=== PATIENT | male | born 1985 | race Caucasian/White ===

== ENCOUNTER → 2016-11-12 | Outpatient (CLI) | payer MEDICARE, BC | END | disposition home or self-care (01) | LOC: LABWHC1 10:45 | PROVIDERS: ATTEND Internal Medicine Cardiovascular Disease | DX: I42.8 Other cardiomyopathies (principal); I50.9 Heart failure, unspecified | CPT/HCPCS: 80307; G0480 ×2; 80349; 80353 ==

== ENCOUNTER → 2017-01-16 | Outpatient (CLI) | payer MEDICARE, BC ==
[2017-01-16 10:44] LABS: Basophils % (A) 0 %; CH 34.8; CHCM 35.4; Eosinophils % (A) 1 %; HCT 51.1 % (39.0-53.0); HDW 3.23; HGB 17.4 gm/dL (13.0-17.5); Luc # (Auto) 0.13; Luc % (Auto) 3; Lymphocytes # (A) 1.5 k/uL (1.0-4.8); Lymphocytes % (A) 29 %; MCH 33.6 pg (25.0-35.0); MCV 98.7 fL (80.0-100.0); Mean Platelet Volume 7.4; Monocytes # (A) 0.4 k/uL (0-1.0); Monocytes % (A) 8 %; Neutrophils % (A) 60 %; RBC 5.17 m/uL (4.30-5.90); RDW 14.3 % (11.5-15.5); WBC (Perox) 4.93
[2017-01-16 10:47] LABS: Anion Gap 13 mmol/L; Blood Urea Nitrogen 10 mg/dL (9-20); Calcium 9.8 mg/dL (8.4-10.2); Carbon Dioxide 27 mmol/L (22-30); Chloride 103 mmol/L (98-107); Glucose 93 mg/dL (74-99); LDH 934 U/L (313-618); Magnesium 2.1 mg/dL (1.6-2.3); Non-African American GFR(MDRD) >60 (>60 ml/min/1.73 sqM); Potassium 4.4 mmol/L (3.5-5.1); Sodium 143 mmol/L (137-145)
== END | disposition home or self-care (01) ==
LOC: LABWHC1 09:35
PROVIDERS: ATTEND Surgery
DX: I42.5 Other restrictive cardiomyopathy (principal); I50.9 Heart failure, unspecified
CPT/HCPCS: 36415; 80048; 83615; 83735; 83880; 85025

== ENCOUNTER → 2017-06-23 | Outpatient (CLI) | payer MEDICARE, BC | END | disposition home or self-care (01) | LOC: LABWHC1 11:54 | PROVIDERS: ATTEND Internal Medicine Cardiovascular Disease | DX: I42.8 Other cardiomyopathies (principal); I50.9 Heart failure, unspecified | CPT/HCPCS: G0480 ×3; 80323; 80349; 80353 ==

== ENCOUNTER → 2017-08-04 | Outpatient (CLI) | payer MEDICARE, BC ==
[2017-08-06 16:12] LABS: Anabasine Urine <2.0 ng/mL (<2.0)
== END | disposition home or self-care (01) ==
LOC: LABWHC1 12:29
PROVIDERS: ATTEND Internal Medicine Cardiovascular Disease
DX: Z71.51 Drug abuse counseling and surveillance of drug abuser (principal)
CPT/HCPCS: 36415; G0480 ×3; 80323; 80349; 80353

== ENCOUNTER → 2017-09-10 | Outpatient (CLI) | payer MEDICARE, BC | END | disposition home or self-care (01) | LOC: LABWHC1 10:00 | PROVIDERS: ATTEND Internal Medicine Cardiovascular Disease | DX: I42.8 Other cardiomyopathies (principal); Z53.9 Procedure and treatment not carried out, unspecified reason ==

== ENCOUNTER → 2018-02-16 | Outpatient (CLI) | payer MEDICARE, BC ==
[2018-02-16 10:37] LABS: INR 1.9 (<1.2); Prothrombin Time 17.3 sec (9.0-12.0)
== END | disposition home or self-care (01) ==
LOC: LABWHC1 08:52
PROVIDERS: ATTEND Surgery
DX: I42.5 Other restrictive cardiomyopathy (principal); I50.9 Heart failure, unspecified
CPT/HCPCS: 36415; 83615; 85610

== ENCOUNTER 2018-05-01 18:48 | Emergency (ER) | payer MEDICARE, BC ==
[2018-05-01 18:59] VITALS: TEMP 97.6
[2018-05-01] MEDS ORDERED: OXYMETAZOLINE 0.05% NASL SPRAY 1 SPRAY BOTTLE NASAL STA (19:12)
[2018-05-01 20:02] LABS: INR 1.6 (<1.2); Partial Thromboplastin Time 35.5 sec (22.0-30.0); Prothrombin Time 16.2 sec (9.0-12.0)
--- NOTE | 2018-05-01 20:44 | ED ---
ENT HPI - General Chief complaint: ENT Stated complaint: NOSEBLEED Time Seen by Provider: 05/01/18 19:03 Source: patient Mode of arrival: ambulatory Limitations: no limitations - History of Present Illness Initial comments: 32-year-old male patient with past medical history significant for dilated cardiomyopathy with implanted cardioverter defibrillator and use of Coumadin presents to the emergency department today for evaluation of epistaxis. Patient states a couple of hours ago he started to have some bleeding from the right nostril. Patient states his been unable to get it to stop. He denies any headache, blurred vision, double vision, facial pain, dizziness, or weakness. States that he has been sick with upper respiratory symptoms including nasal congestion and drainage as well as cough. He denies any current fever or chills. Denies any shortness of breath or hemoptysis. He is unsure when his last INR was checked. Patient denies any recent rash, chest pain , abdominal pain, nausea, vomiting, diarrhea, constipation, back pain, numbness , tingling, hematuria, dysuria, urinary urgency, urinary frequency, or any other complaints. - Related Data Allergies Allergy/AdvReac Type Severity Reaction Status Date / Time No Known Allergies Allergy Verified 05/01/18 18:58 Review of Systems ROS Statement: Those systems with pertinent positive or pertinent negative responses have been documented in the HPI. ROS Other: All systems not noted in ROS Statement are negative. Past Medical History Past Medical History: Hypertension Additional Past Medical History / Comment(s): Lt ventricle assistive device. History of Any Multi-Drug Resistant Organisms: None Reported Past Surgical History: AICD, Pacemaker Past Psychological History: No Psychological Hx Reported Smoking Status: Never smoker Past Alcohol Use History: None Reported Past Drug Use History: None Reported General Exam Limitations: no limitations General appearance: alert, in no apparent distress, other (Physical well- developed, well-nourished adult male patient in no acute distress. Vital signs upon presentation are temperature 97.6F, pulse 140, respirations 20, pulse ox 100% on room air. Unable to obtain blood pressure due to heart condition.) ENT exam: Present: mucous membranes moist, other (Dried crusted blood noted to right nare. No active bleeding noted. ). Absent: normal exam, normal oropharynx (Blood noted in the pharynx.) Respiratory exam: Present: normal lung sounds bilaterally. Absent: respiratory distress, wheezes, rales, rhonchi, stridor Cardiovascular Exam: Present: normal rhythm, tachycardia, normal heart sounds. Absent: systolic murmur, diastolic murmur, rubs, gallop, clicks Neurological exam: Present: alert, oriented X3, CN II-XII intact Psychiatric exam: Present: normal affect, normal mood Skin exam: Present: warm, dry, intact, normal color. Absent: rash Course Vital Signs 05/01/18 05/01/18 18:55 21:03 Temperature 97.6 F Pulse Rate 140 H 108 H Respiratory 20 18 Rate O2 Sat by Pulse 100 98 Oximetry Medical Decision Making - Medical Decision Making 32-year-old male patient presented to the emergency department today for evaluation of epistaxis. Patient does take Coumadin. INR here was 1.6. Did use Afrin and compression which did stop the bleeding. Monitor patient for a period of 40 minutes, he had no rebleeding and did request to be discharged home. Patient does have an LVAD and did speak to his LVAD coordinator who agrees with plan for discharge and use of Afrin as needed. Heart rate did improve. Patient states he normally runs around 100 bpm. He is instructed to follow-up with his primary care physician for recheck in 1-2 days. Return parameters discussed in detail. He verbalizes understanding and agrees this plan - Lab Data Lab Results 05/01/18 Range/Units 19:25 PT 16.2 H (9.0-12.0) sec INR 1.6 H (<1.2) APTT 35.5 H (22.0-30.0) sec Disposition Clinical Impression: Epistaxis Disposition: HOME SELF-CARE Condition: Good Instructions: Nosebleed (ED) Additional Instructions: Use afrin as needed and as directed for recurrent nasal bleeding. Follow up with family physician for recheck in 1-2 days. Return to the emergency department immediately for any new, worsening, or concerning symptoms. Is patient prescribed a controlled substance at d/c from ED?: No Referrals: None,Stated [Primary Care Provider] - 1-2 days Time of Disposition: 20:44
[2018-05-01 21:04] VITALS: PULSE 108; RESP 18
== END 2018-05-01 21:04 | disposition home or self-care (01) ==
LOC: EC 18:48
DX: R04.0 Epistaxis (principal); Z79.01 Long term (current) use of anticoagulants; Z86.79 Personal history of other diseases of the circulatory system; Z95.810 Presence of automatic (implantable) cardiac defibrillator
CPT/HCPCS: 36415; 85610; 85730; 99283

== ENCOUNTER → 2019-05-08 | Outpatient (CLI) | payer MEDICARE, BC ==
[2019-05-08 11:28] LABS: Basophils # (A) 0.1 k/uL (0-0.2); Basophils % (A) 1 %; Eosinophils % (A) 1 %; HCT 42.1 % (39.0-53.0); HGB 15.1 gm/dL (13.0-17.5); Hyperchromasia Slight; Lymphocytes # (A) 1.2 k/uL (1.0-4.8); Lymphocytes % (A) 23 %; MCH 32.3 pg (25.0-35.0); MCHC 35.8 g/dL (31.0-37.0); MCV 90.3 fL (80.0-100.0); Mean Platelet Volume 8.2; Monocytes # (A) 0.3 k/uL (0-1.0); Monocytes % (A) 6 %; Neutrophils # (A) 3.6 k/uL (1.3-7.7); Neutrophils % (A) 68 %; Platelet Count 208 k/uL (150-450); RBC 4.66 m/uL (4.30-5.90); RDW 13.6 % (11.5-15.5); WBC 5.3 k/uL (3.8-10.6)
[2019-05-08 11:41] LABS: ALT 19 U/L (4-49); AST 32 U/L (17-59); African American GFR (CKD) >90 (>60 ml/min/1.73 sqM); Albumin 4.8 g/dL (3.5-5.0); Albumin/Globulin Ratio 1.4; Alkaline Phosphatase 35 U/L (38-126); Anion Gap 8 mmol/L; Bilirubin,Unconjugated 1.3 mg/dL (0.0-1.1); Blood Urea Nitrogen 16 mg/dL (9-20); Calcium 9.5 mg/dL (8.4-10.2); Carbon Dioxide 29 mmol/L (22-30); Chloride 104 mmol/L (98-107); Globulin 3.4 g/dL; Glucose 100 mg/dL (74-99); LDH 996 U/L (313-618); Non-African American GFR(CKD) >90 (>60 ml/min/1.73 sqM); Potassium 4.6 mmol/L (3.5-5.1); Sodium 141 mmol/L (137-145); Total Bilirubin 1.6 mg/dL (0.2-1.3); Total Protein 8.2 g/dL (6.3-8.2)
[2019-05-08 11:42] LABS: INR 1.7 (<1.2); Prothrombin Time 16.3 sec (9.0-12.0)
== END | disposition home or self-care (01) ==
LOC: LABWHC1 11:02
PROVIDERS: ATTEND Surgery
DX: I50.9 Heart failure, unspecified (principal); I42.5 Other restrictive cardiomyopathy
CPT/HCPCS: 36415; 80048; 80076; 83615; 83735; 83880; 85025; 85610

== ENCOUNTER → 2019-05-15 | Outpatient (CLI) | payer MEDICARE, BC ==
[2019-05-15 12:35] LABS: Partial Thromboplastin Time 32.3 sec (22.0-30.0); Prothrombin Time 19.2 sec (9.0-12.0)
== END | disposition home or self-care (01) ==
LOC: LABWHC1 12:00
PROVIDERS: ATTEND Surgery
DX: I42.5 Other restrictive cardiomyopathy (principal); I50.9 Heart failure, unspecified
CPT/HCPCS: 36415; 83615; 85610; 85730

== ENCOUNTER → 2019-10-12 | Outpatient (CLI) | payer MEDICARE, BC ==
[2019-10-12 17:12] LABS: Urine Alcohol Negative (Negative); Urine Barbiturate Negative (Negative); Urine Cocaine Negative (Negative); Urine Methadone Negative (Negative); Urine Opiates Negative (Negative); Urine Phencyclidine Negative (Negative)
== END | disposition home or self-care (01) ==
LOC: LABWHC1 07:22
PROVIDERS: ATTEND Internal Medicine Cardiovascular Disease
DX: Z01.810 Encounter for preprocedural cardiovascular examination (principal)
CPT/HCPCS: 80306; 80307

== ENCOUNTER → 2019-11-30 | Outpatient (CLI) | payer MEDICARE, BC | END | disposition home or self-care (01) | LOC: LABWHC1 07:02 | PROVIDERS: ATTEND Internal Medicine Cardiovascular Disease | DX: Z01.810 Encounter for preprocedural cardiovascular examination (principal) | CPT/HCPCS: 80307; G0480 ×2; 80349; 80353 ==

== ENCOUNTER → 2020-02-21 | Outpatient (CLI) | payer MEDICARE, BC ==
[2020-02-21 08:16] LABS: Basophils # (A) 0.1 k/uL (0-0.2); Basophils % (A) 1 %; Eosinophils # (A) 0.1 k/uL (0-0.7); Eosinophils % (A) 1 %; HCT 50.1 % (39.0-53.0); HGB 17.1 gm/dL (13.0-17.5); Lymphocytes # (A) 1.3 k/uL (1.0-4.8); Lymphocytes % (A) 24 %; MCH 32.8 pg (25.0-35.0); MCHC 34.2 g/dL (31.0-37.0); MCV 95.8 fL (80.0-100.0); Mean Platelet Volume 7.6; Monocytes # (A) 0.4 k/uL (0-1.0); Monocytes % (A) 9 %; Neutrophils # (A) 3.3 k/uL (1.3-7.7); Neutrophils % (A) 64 %; Platelet Count 208 k/uL (150-450); RBC 5.22 m/uL (4.30-5.90); RDW 13.6 % (11.5-15.5); WBC 5.2 k/uL (3.8-10.6)
[2020-02-21 14:42] LABS: Digoxin 0.3 ng/mL (0.8-2.0)
[2020-02-21 15:04] LABS: African American GFR (CKD) 114.1 (60.0-200.0); Albumin 4.7 g/dL (3.80-4.90); Albumin/Globulin Ratio 1.74 (1.60-3.17); Anion Gap 8.4 mmol/L (4.00-12.00); Bilirubin, Conjugated 0.6 mg/dL (0.20-0.40); Bilirubin,Unconjugated 1.5 mg/dL; Calcium 9.6 mg/dL (8.7-10.3); Carbon Dioxide 26.6 mmol/L (21.6-31.8); Globulin 2.7 g/dL (1.6-3.3); Magnesium 2.2 mg/dL (1.5-2.4); Non-African American GFR(CKD) 98.5 (60.0-200.0); Potassium 4.8 mmol/L (3.5-5.5); Total Bilirubin 2.1 mg/dL (0.2-1.2); Total Protein 7.4 g/dL (6.2-8.2)
[2020-02-21 15:18] LABS: INR 1.91 (0.90-1.11); Prothrombin Time 19.9 sec (9.9-11.9)
== END | disposition home or self-care (01) ==
LOC: LABWHC1 07:17 → EDSTATUS 08:58
PROVIDERS: ATTEND Physician Assistant
DX: I50.9 Heart failure, unspecified (principal); I42.5 Other restrictive cardiomyopathy
CPT/HCPCS: 36415; 80048; 80076; 80162; 83615; 83735; 83880; 85025; 85610

== ENCOUNTER → 2020-03-14 | Outpatient (CLI) | payer MEDICARE, BC ==
[2020-03-14 08:25] LABS: Basophils % (A) 1 %; Eosinophils % (A) 1 %; HGB 17.4 gm/dL (13.0-17.5); Hyperchromasia Slight; Lymphocytes # (A) 1.4 k/uL (1.0-4.8); Lymphocytes % (A) 30 %; MCH 32.8 pg (25.0-35.0); MCHC 35.5 g/dL (31.0-37.0); MCV 92.5 fL (80.0-100.0); Mean Platelet Volume 7.7; Monocytes # (A) 0.4 k/uL (0-1.0); Monocytes % (A) 7 %; Neutrophils # (A) 2.8 k/uL (1.3-7.7); Neutrophils % (A) 59 %; Platelet Count 214 k/uL (150-450); RDW 13.2 % (11.5-15.5); WBC 4.8 k/uL (3.8-10.6)
[2020-03-14 08:35] LABS: ALT 25 U/L (4-49); AST 34 U/L (17-59); African American GFR (CKD) >90 (>60 ml/min/1.73 sqM); Albumin 5.2 g/dL (3.5-5.0); Albumin/Globulin Ratio 1.6; Alkaline Phosphatase 30 U/L (38-126); Anion Gap 8 mmol/L; Blood Urea Nitrogen 11 mg/dL (9-20); Calcium 9.7 mg/dL (8.4-10.2); Carbon Dioxide 31 mmol/L (22-30); Chloride 101 mmol/L (98-107); Globulin 3.2 g/dL; Glucose 102 mg/dL (74-99); LDH 1048 U/L (313-618); Magnesium 2.2 mg/dL (1.6-2.3); Non-African American GFR(CKD) >90 (>60 ml/min/1.73 sqM); Sodium 140 mmol/L (137-145); Total Bilirubin 2.4 mg/dL (0.2-1.3); Total Protein 8.4 g/dL (6.3-8.2)
[2020-03-14 08:42] LABS: INR 1.9 (<1.2); Prothrombin Time 18.6 sec (9.0-12.0)
[2020-03-14 10:11] LABS: Digoxin <0.4 ng/mL
== END | disposition home or self-care (01) ==
LOC: LABWHC1 07:20 → EDSTATUS 07:23
PROVIDERS: ATTEND Physician Assistant
DX: Z01.810 Encounter for preprocedural cardiovascular examination (principal); I50.9 Heart failure, unspecified; I42.5 Other restrictive cardiomyopathy
CPT/HCPCS: 36415; 80048; 80076; 80162; 80307; 83615; 83735; 83880; 85025; 85610

== ENCOUNTER → 2020-05-30 | Outpatient (CLI) | payer MEDICARE, BC ==
[2020-05-31 15:17] LABS: Anabasine Urine <2.0 ng/mL (<2.0)
== END | disposition home or self-care (01) ==
LOC: LABWHC1 13:30
PROVIDERS: ATTEND Internal Medicine
DX: Z01.810 Encounter for preprocedural cardiovascular examination (principal)
CPT/HCPCS: 80307; 80323

== ENCOUNTER → 2020-07-03 | Outpatient (CLI) | payer MEDICARE, BC ==
[2020-07-03 22:39] LABS: INR 2.38 (0.90-1.11); Prothrombin Time 24.5 sec (9.9-11.9)
[2020-07-03 23:12] LABS: Basophils # (A) 0.03 X 10*3/uL (0.00-0.10); Basophils % (A) 0.5 %; Eosinophils # (A) 0.04 X 10*3/uL (0.04-0.35); Eosinophils % (A) 0.7 %; HCT 43.8 % (39.6-50.0); HGB 15.6 g/dL (13.0-17.0); Lymphocytes # (A) 1.62 X 10*3/uL (0.90-5.00); Lymphocytes % (A) 29.1 %; MCH 32.3 pg (27.0-32.0); MCHC 35.6 g/dL (32.0-37.0); MCV 90.7 fL (80.0-97.0); Mean Platelet Volume 11.1 fL (9.5-12.2); Monocytes # (A) 0.44 X 10*3/uL (0.20-1.00); Monocytes % (A) 7.9 %; Neutrophils # (A) 3.41 X 10*3/uL (1.80-7.70); Neutrophils % (A) 61.3 %; Platelet Count 203 X 10*3/uL (140-440); RBC 4.83 X 10*6/uL (4.40-5.60); RDW 13.3 % (11.5-14.5); WBC 5.57 X 10*3/uL (4.50-10.00)
[2020-07-04 01:36] LABS: African American GFR (CKD) 113.3 (60.0-200.0); Albumin 4.8 g/dL (3.80-4.90); Anion Gap 11.4 mmol/L (4.00-12.00); Bilirubin, Conjugated 0.6 mg/dL (0.20-0.40); Bilirubin,Unconjugated 1.1 mg/dL; Calcium 9.3 mg/dL (8.7-10.3); Carbon Dioxide 24.6 mmol/L (21.6-31.8); Globulin 2.4 g/dL (1.6-3.3); Magnesium 2.1 mg/dL (1.5-2.4); Non-African American GFR(CKD) 97.8 (60.0-200.0); Potassium 4.1 mmol/L (3.5-5.5); Total Bilirubin 1.7 mg/dL (0.2-1.2); Total Protein 7.2 g/dL (6.2-8.2)
== END | disposition home or self-care (01) ==
LOC: LABWHC1 14:38
PROVIDERS: ATTEND Physician Assistant
DX: I42.5 Other restrictive cardiomyopathy (principal); I50.9 Heart failure, unspecified
CPT/HCPCS: 36415; 80048; 80076; 83615; 83735; 83880; 85025; 85610

== ENCOUNTER → 2020-07-05 | Outpatient (CLI) | payer MEDICARE, BC ==
[2020-07-10 08:44] LABS: Anabasine Urine <2.0 ng/mL (<2.0)
== END | disposition home or self-care (01) ==
LOC: LABWHC1 13:48
PROVIDERS: ATTEND Internal Medicine Cardiovascular Disease
DX: Z01.810 Encounter for preprocedural cardiovascular examination (principal)
CPT/HCPCS: 80307; G0480 ×2; 80323; 80349

== ENCOUNTER → 2020-11-15 | Outpatient (CLI) | payer MEDICARE, BC | END | disposition home or self-care (01) | LOC: LABWHC1 14:43 | PROVIDERS: ATTEND Internal Medicine Cardiovascular Disease | DX: Z01.810 Encounter for preprocedural cardiovascular examination (principal) | CPT/HCPCS: 36415; 80307 ==

== ENCOUNTER → 2020-11-27 | Outpatient (CLI) | payer MEDICARE, BC ==
[2020-11-27 19:28] LABS: INR 2.37 (0.90-1.11); Prothrombin Time 24.4 sec (9.9-11.9)
[2020-11-27 19:48] LABS: Basophils # (A) 0.03 X 10*3/uL (0.00-0.10); Basophils % (A) 0.5 %; Eosinophils # (A) 0.04 X 10*3/uL (0.04-0.35); Eosinophils % (A) 0.7 %; HCT 43.3 % (39.6-50.0); HGB 15.1 g/dL (13.0-17.0); Lymphocytes # (A) 1.29 X 10*3/uL (0.90-5.00); Lymphocytes % (A) 22.4 %; MCH 32.8 pg (27.0-32.0); MCHC 34.9 g/dL (32.0-37.0); MCV 93.9 fL (80.0-97.0); Mean Platelet Volume 11.2 fL (9.5-12.2); Monocytes # (A) 0.45 X 10*3/uL (0.20-1.00); Monocytes % (A) 7.8 %; Neutrophils # (A) 3.93 X 10*3/uL (1.80-7.70); Neutrophils % (A) 68.3 %; Platelet Count 202 X 10*3/uL (140-440); RBC 4.61 X 10*6/uL (4.40-5.60); RDW 13.4 % (11.5-14.5); WBC 5.76 X 10*3/uL (4.50-10.00)
[2020-11-28 02:10] LABS: African American GFR (CKD) 135.1 (60.0-200.0); Albumin 4.6 g/dL (3.80-4.90); Albumin/Globulin Ratio 1.77 (1.60-3.17); Anion Gap 8.5 mmol/L (4.00-12.00); BUN/Creat Ratio 17.5 Ratio (12.00-20.00); Bilirubin, Conjugated 0.5 mg/dL (0.20-0.40); Bilirubin,Unconjugated 1.1 mg/dL; Carbon Dioxide 27.5 mmol/L (21.6-31.8); Globulin 2.6 g/dL (1.6-3.3); Non-African American GFR(CKD) 116.6 (60.0-200.0); Potassium 4.6 mmol/L (3.5-5.5); Total Bilirubin 1.6 mg/dL (0.2-1.2); Total Protein 7.2 g/dL (6.2-8.2)
[2020-11-28 16:07] LABS: Digoxin 0.4 ng/mL (0.8-2.0)
== END | disposition home or self-care (01) ==
LOC: LABWHC1 14:01
PROVIDERS: ATTEND Physician Assistant
DX: I42.5 Other restrictive cardiomyopathy (principal); I50.9 Heart failure, unspecified
CPT/HCPCS: 36415; 80048; 80076; 80162; 83615; 83735; 83880; 85025; 85610

== ENCOUNTER → 2021-05-03 | Outpatient (CLI) | payer MEDICARE, BC | END | disposition home or self-care (01) | LOC: LABWHC1 13:36 | PROVIDERS: ATTEND Internal Medicine Cardiovascular Disease | DX: Z01.810 Encounter for preprocedural cardiovascular examination (principal) | CPT/HCPCS: 80323 ==

== ENCOUNTER → 2021-05-16 | Outpatient (CLI) | payer MEDICARE, BC ==
[2021-05-16 18:31] LABS: Basophils # (A) 0.03 X 10*3/uL (0.00-0.10); Basophils % (A) 0.5 %; Eosinophils # (A) 0.03 X 10*3/uL (0.04-0.35); Eosinophils % (A) 0.5 %; HCT 44.6 % (39.6-50.0); HGB 15.5 g/dL (13.0-17.0); Lymphocytes # (A) 1.32 X 10*3/uL (0.90-5.00); Lymphocytes % (A) 23.6 %; MCH 33.2 pg (27.0-32.0); MCHC 34.8 g/dL (32.0-37.0); MCV 95.5 fL (80.0-97.0); Monocytes # (A) 0.45 X 10*3/uL (0.20-1.00); Neutrophils # (A) 3.76 X 10*3/uL (1.80-7.70); Neutrophils % (A) 67.2 %; Platelet Count 194 X 10*3/uL (140-440); RBC 4.67 X 10*6/uL (4.40-5.60); RDW 13.8 % (11.5-14.5)
[2021-05-16 18:42] LABS: African American GFR (CKD) 124.3 (60.0-200.0); Albumin 4.6 g/dL (3.8-4.9); Albumin/Globulin Ratio 1.99 (1.60-3.17); Anion Gap 9.6 mmol/L (10.00-18.00); BUN/Creat Ratio 14.47 Ratio (12.00-20.00); Bilirubin, Conjugated 0.33 mg/dL (0.20-0.40); Bilirubin,Unconjugated 1.13 mg/dL (0.20-1.00); Blood Urea Nitrogen 13.4 mg/dL (9.0-27.0); Calcium 9.3 mg/dL (8.7-10.3); Carbon Dioxide 25.6 mmol/L (20.0-27.5); Globulin 2.3 g/dL (1.6-3.3); Non-African American GFR(CKD) 107.3 (60.0-200.0); Total Bilirubin 1.5 mg/dL (0.30-1.20); Total Protein 6.9 g/dL (6.2-8.2)
[2021-05-16 19:41] LABS: INR 3.28 (0.90-1.11)
[2021-05-16 23:21] LABS: Digoxin 0.6 ng/mL (0.8-2.0)
== END | disposition home or self-care (01) ==
LOC: LABWHC1 13:18
PROVIDERS: ATTEND Physician Assistant
DX: I42.5 Other restrictive cardiomyopathy (principal); I50.9 Heart failure, unspecified
CPT/HCPCS: 36415; 80048; 80076; 80162; 83615; 83735; 83880; 85025; 85610

== ENCOUNTER → 2021-07-23 | Outpatient (CLI) | payer MEDICARE, BC ==
[2021-07-23 19:09] LABS: Basophils # (A) 0.04 X 10*3/uL (0.00-0.10); Basophils % (A) 0.8 %; Eosinophils # (A) 0.03 X 10*3/uL (0.04-0.35); Eosinophils % (A) 0.6 %; HCT 45.9 % (39.6-50.0); HGB 15.7 g/dL (13.0-17.0); Immature Grans, Automated 0.4 %; Lymphocytes # (A) 1.04 X 10*3/uL (0.90-5.00); Lymphocytes % (A) 20.5 %; MCH 32.8 pg (27.0-32.0); MCHC 34.2 g/dL (32.0-37.0); MCV 95.8 fL (80.0-97.0); Mean Platelet Volume 11.4 fL (9.5-12.2); Monocytes # (A) 0.41 X 10*3/uL (0.20-1.00); Monocytes % (A) 8.1 %; NRBC Per 100 WBC 0 /100 WBCS (0.0-0.0); Neutrophils # (A) 3.54 X 10*3/uL (1.80-7.70); Neutrophils % (A) 69.6 %; Platelet Count 201 X 10*3/uL (140-440); RBC 4.79 X 10*6/uL (4.40-5.60); RDW 13.3 % (11.5-14.5); WBC 5.08 X 10*3/uL (4.50-10.00)
[2021-07-23 20:01] LABS: INR 1.52 (0.90-1.11); Prothrombin Time 16.8 sec (9.9-11.9)
[2021-07-23 20:59] LABS: Magnesium 2.1 mg/dL (1.5-2.4)
[2021-07-23 21:11] LABS: ALT 20 U/L (10-49); AST 34 U/L (14-35); African American GFR (CKD) 127.8 (60.0-200.0); Albumin 4.7 g/dL (3.8-4.9); Albumin/Globulin Ratio 2.14 (1.60-3.17); Alkaline Phosphatase 35 U/L (41-126); BUN/Creat Ratio 12.11 Ratio (12.00-20.00); Bilirubin, Conjugated 0.38 mg/dL (0.20-0.40); Bilirubin,Unconjugated 1.32 mg/dL (0.20-1.00); Blood Urea Nitrogen 10.9 mg/dL (9.0-27.0); Calcium 9.1 mg/dL (8.7-10.3); Carbon Dioxide 22.7 mmol/L (20.0-27.5); Chloride 104 mmol/L (96-109); Globulin 2.2 g/dL (1.6-3.3); Glucose 96 mg/dL (70-110); Non-African American GFR(CKD) 110.3 (60.0-200.0); Potassium 4.4 mmol/L (3.5-5.5); Sodium 139 mmol/L (135-145); Total Protein 6.9 g/dL (6.2-8.2)
[2021-07-23 21:21] LABS: Digoxin <0.3 ng/mL (0.8-2.0); LDH 467 U/L (120-246)
== END | disposition home or self-care (01) ==
LOC: LABWHC1 13:40
PROVIDERS: ATTEND Physician Assistant
DX: I42.5 Other restrictive cardiomyopathy (principal); I50.9 Heart failure, unspecified
CPT/HCPCS: 36415; 80048; 80076; 80162; 83615; 83735; 83880; 85025; 85610

== ENCOUNTER 2021-11-30 11:24 | Emergency (ER) | payer MEDICARE, BC ==
[2021-11-30 11:42] VITALS: RESP 16
[2021-11-30] MEDS ORDERED: MAGNESIUM SULFATE-D5W PMX 1 GM in DEXTROSE/WATER 1 100ML.BAG IVPB ONE (11:43)
[2021-11-30] MEDS ORDERED: SODIUM CHLORIDE 0.9% 500 ML 500 ML IV STA (11:48)
[2021-11-30] MEDS: MAGNESIUM SULFATE-D5W PMX 1 GM in DEXTROSE/WATER 1 100ML.BAG IVPB ONE ×2 (11:49→12:10)
[2021-11-30 11:51] LABS: Glucose,Whole Blood 166 mg/dL (70-110)
[2021-11-30] MEDS ORDERED: MAGNESIUM SULFATE-D5W PMX 1 GM in DEXTROSE/WATER 1 100ML.BAG IVPB SCH (12:00)
[2021-11-30 12:15] LABS: ALT 29 U/L (4-49); AST 46 U/L (17-59); African American GFR (CKD) >90 (>60 ml/min/1.73 sqM); Alkaline Phosphatase 42 U/L (38-126); Anion Gap 15 mmol/L; Blood Urea Nitrogen 16 mg/dL (9-20); Calcium 9.2 mg/dL (8.4-10.2); Carbon Dioxide 18 mmol/L (22-30); Chloride 107 mmol/L (98-107); Glucose 164 mg/dL (74-99); Magnesium 1.9 mg/dL (1.6-2.3); Non-African American GFR(CKD) >90 (>60 ml/min/1.73 sqM); Potassium 4.3 mmol/L (3.5-5.1); Sodium 140 mmol/L (137-145); Total Bilirubin 2.7 mg/dL (0.2-1.3); Total Protein 7.9 g/dL (6.3-8.2)
[2021-11-30 12:16] LABS: INR 2.7 (<1.2); Partial Thromboplastin Time 30.4 sec (22.0-30.0); Prothrombin Time 27.1 sec (9.0-12.0)
--- NOTE | 2021-11-30 12:19 | XR ---
EXAMINATION TYPE: XR chest 1V DATE OF EXAM: 11/30/2021 COMPARISON: 05/22/2011 HISTORY: Chest pain TECHNIQUE: Single frontal view of the chest is obtained. FINDINGS: Postsurgical changes with cardiac device. Cardiac enlargement is seen. No sizable pleural effusion or pneumothorax. No consolidation. No overt failure. IMPRESSION: Severe global cardiomegaly.
--- NOTE | 2021-11-30 12:21 | ED ---
General Adult HPI - General Chief complaint: Arrhythmia/Palpitations Stated complaint: Cardiac Time Seen by Provider: 11/30/21 11:30 Source: patient, EMS, RN notes reviewed, old records reviewed Mode of arrival: EMS Limitations: no limitations - History of Present Illness Initial comments: This is a 36-year-old male presents emergency Department with a past medical history significant for cardiomyopathy as well as having an LVAD in place the last 10 years. Patient comes in today because he felt his fibula shock him 3 times and when EMS arrived the patient was in a torsades. EMS did not administer any medications. Patient himself states he feels pretty good he is not having any chest pain he is not short of breath. Patient states he is a little sweaty. Patient denies any recent fever chills. Patient denies abdominal pain patient has nausea vomiting diarrhea. - Related Data Allergies Allergy/AdvReac Type Severity Reaction Status Date / Time No Known Allergies Allergy Verified 11/30/21 11:42 Review of Systems ROS Statement: Those systems with pertinent positive or pertinent negative responses have been documented in the HPI. ROS Other: All systems not noted in ROS Statement are negative. Past Medical History Past Medical History: Hypertension Additional Past Medical History / Comment(s): Lt ventricle assistive device. History of Any Multi-Drug Resistant Organisms: None Reported Past Surgical History: AICD, Pacemaker Past Psychological History: No Psychological Hx Reported Smoking Status: Never smoker Past Alcohol Use History: None Reported Past Drug Use History: None Reported General Exam - General Exam Comments Initial Comments: GENERAL: Patient is well-developed and well-nourished. Patient is nontoxic and well- hydrated and is in mild distress. Patient is mildly diaphoretic ENT: Neck is soft and supple. No significant lymphadenopathy is noted. Oropharynx is clear. Moist mucous membranes. Neck has full range of motion without eliciting any pain. EYES: The sclera were anicteric and conjunctiva were pink and moist. Extraocular movements were intact and pupils were equal round and reactive to light. Eyelid s were unremarkable. PULMONARY: Unlabored respirations. Good breath sounds bilaterally. No audible rales rhonchi or wheezing was noted. CARDIOVASCULAR: Unable to hear any significant heart sounds ABDOMEN: Soft and nontender with normal bowel sounds. SKIN: Skin is clear with no lesions or rashes and otherwise unremarkable. NEUROLOGIC: Patient is alert and oriented x3. Cranial nerves II through XII are grossly intact. Motor and sensory are also intact. Normal speech, volume and content. Symmetrical smile. MUSCULOSKELETAL: Normal extremities with adequate strength and full range of motion. LYMPHATICS: No significant lymphadenopathy is noted PSYCHIATRIC: Normal psychiatric evaluation. Limitations: no limitations Course Vital Signs 11/30/21 11/30/21 11/30/21 11:26 12:54 13:12 Temperature 98.0 F 98.4 F Respiratory 16 16 16 Rate O2 Sat by Pulse 99 99 Oximetry Procedures - Procedural Sedation Procedural Sedation Start Time: 13:25 Procedural Sedation Stop Time: 13:45 ASA Class: II Preparation: cafeteria monitor applied, pulse oximeter, supplemental O2 applied Midazolam Dose: 3 Complications: none Patient Tolerated Procedure: well Medical Decision Making - Medical Decision Making Patient's EKG shows Torsedes. I spoke with Dr. Salma Barton and she recommended amiodarone bolus of 150 mg and then an amiodarone drip as well as cardioversion. Chest x-ray shows cardiomegaly. Patient received 2 g of magnesium here. Patient received amiodarone bolus and monitored 15 started on amiodarone drip. Patient was cardioverted at 100 J after given 3 of Versed patient went right back into torsades - Lab Data Result diagrams: 11/30/21 11:51 11/30/21 11:51 Lab Results 11/30/21 11/30/21 11/30/21 Range/Units 11:39 11:51 11:51 WBC 6.4 (3.8-10.6) k/uL RBC 4.60 (4.30-5.90) m/uL Hgb 16.0 (13.0-17.5) gm/dL Hct 46.1 (39.0-53.0) % MCV 100.2 H (80.0-100.0) fL MCH 34.8 (25.0-35.0) pg MCHC 34.7 (31.0-37.0) g/dL RDW 14.3 (11.5-15.5) % Plt Count 191 (150-450) k/uL MPV 8.7 Neutrophils % 75 % Lymphocytes % 18 % Monocytes % 5 % Eosinophils % 0 % Basophils % 1 % Neutrophils # 4.8 (1.3-7.7) k/uL Lymphocytes # 1.1 (1.0-4.8) k/uL Monocytes # 0.3 (0-1.0) k/uL Eosinophils # 0.0 (0-0.7) k/uL Basophils # 0.0 (0-0.2) k/uL Poikilocytosis Slight Macrocytosis Slight PT 27.1 H (9.0-12.0) sec INR 2.7 H (<1.2) APTT 30.4 H (22.0-30.0) sec Sodium (137-145) mmol/L Potassium (3.5-5.1) mmol/L Chloride (98-107) mmol/L Carbon Dioxide (22-30) mmol/L Anion Gap mmol/L BUN (9-20) mg/dL Creatinine (0.66-1.25) mg/dL Est GFR (CKD-EPI)AfAm (>60 ml/min/1.73 sqM) Est GFR (CKD-EPI)NonAf (>60 ml/min/1.73 sqM) Glucose (74-99) mg/dL POC Glucose (mg/dL) 166 H (70-110) mg/dL POC Glu Legal Job Titles ID Belval, Lu Calcium (8.4-10.2) mg/dL Magnesium (1.6-2.3) mg/dL Total Bilirubin (0.2-1.3) mg/dL AST (17-59) U/L ALT (4-49) U/L Alkaline Phosphatase (38-126) U/L Troponin I (0.000-0.034) ng/mL Total Protein (6.3-8.2) g/dL Albumin (3.5-5.0) g/dL 11/30/21 11/30/21 Range/Units 11:51 11:51 WBC (3.8-10.6) k/uL RBC (4.30-5.90) m/uL Hgb (13.0-17.5) gm/dL Hct (39.0-53.0) % MCV (80.0-100.0) fL MCH (25.0-35.0) pg MCHC (31.0-37.0) g/dL RDW (11.5-15.5) % Plt Count (150-450) k/uL MPV Neutrophils % % Lymphocytes % % Monocytes % % Eosinophils % % Basophils % % Neutrophils # (1.3-7.7) k/uL Lymphocytes # (1.0-4.8) k/uL Monocytes # (0-1.0) k/uL Eosinophils # (0-0.7) k/uL Basophils # (0-0.2) k/uL Poikilocytosis Macrocytosis PT (9.0-12.0) sec INR (<1.2) APTT (22.0-30.0) sec Sodium 140 (137-145) mmol/L Potassium 4.3 (3.5-5.1) mmol/L Chloride 107 (98-107) mmol/L Carbon Dioxide 18 L (22-30) mmol/L Anion Gap 15 mmol/L BUN 16 (9-20) mg/dL Creatinine 0.97 (0.66-1.25) mg/dL Est GFR (CKD-EPI)AfAm >90 (>60 ml/min/1.73 sqM) Est GFR (CKD-EPI)NonAf >90 (>60 ml/min/1.73 sqM) Glucose 164 H (74-99) mg/dL POC Glucose (mg/dL) (70-110) mg/dL POC Glu Legal Job Titles ID Calcium 9.2 (8.4-10.2) mg/dL Magnesium 1.9 (1.6-2.3) mg/dL Total Bilirubin 2.7 H (0.2-1.3) mg/dL AST 46 (17-59) U/L ALT 29 (4-49) U/L Alkaline Phosphatase 42 (38-126) U/L Troponin I 0.079 H* (0.000-0.034) ng/mL Total Protein 7.9 (6.3-8.2) g/dL Albumin 5.0 (3.5-5.0) g/dL Critical Care Time Critical Care Time: Yes Total Critical Care Time: 45 Disposition Clinical Impression: Torsades de pointes Disposition: OTHER INSTITUTION NOT DEFINED Referrals: Felix Ham MD [REFERRING] - 1-2 days - Out of Hospital Transfer - Req. Specs Out of Hospital Transfer - Requested Specifics: Other Emergency Center ([facility])
[2021-11-30] MEDS ORDERED: AMIODARONE 360 MG in DEXTROSE 5% IN WATER 200 ML IV ONE ×2 (12:22)
[2021-11-30] MEDS ORDERED: MIDAZOLAM 1 MG/ML 5 ML VIAL IV STA (12:22)
[2021-11-30] MEDS ORDERED: DEXTROSE 5% IN WATER 100 ML with AMIODARONE 150 MG IV ONE (12:22)
[2021-11-30 12:23] LABS: Basophils % (A) 1 %; Eosinophils % (A) 0 %; HCT 46.1 % (39.0-53.0); Lymphocytes # (A) 1.1 k/uL (1.0-4.8); Lymphocytes % (A) 18 %; MCH 34.8 pg (25.0-35.0); MCHC 34.7 g/dL (31.0-37.0); MCV 100.2 fL (80.0-100.0); Macrocytosis Slight; Mean Platelet Volume 8.7; Monocytes # (A) 0.3 k/uL (0-1.0); Monocytes % (A) 5 %; Neutrophils # (A) 4.8 k/uL (1.3-7.7); Neutrophils % (A) 75 %; Platelet Count 191 k/uL (150-450); Poikilocytosis Slight; RDW 14.3 % (11.5-15.5); WBC 6.4 k/uL (3.8-10.6)
[2021-11-30 12:57] VITALS: TEMP 98.4
[2021-11-30 13:42] VITALS: BP 0/0; PULSE 0
== END 2021-11-30 14:11 | disposition other institution (70) ==
LOC: EC 11:24
DX: I45.81 Long QT syndrome (principal); I10 Essential (primary) hypertension
CPT/HCPCS: 36415; 93005; 80053; 83735; 84484; 85025; 85610; 85730; 71045; 99291; 96365; 96375; J0282 ×2; J2250; J3475

== ENCOUNTER → 2022-01-04 | Outpatient (CLI) | payer MEDICARE, BC ==
[2022-01-04 22:57] LABS: Basophils # (A) 0.02 X 10*3/uL (0.00-0.10); Basophils % (A) 0.5 %; Eosinophils # (A) 0.04 X 10*3/uL (0.04-0.35); Eosinophils % (A) 0.9 %; HCT 38.2 % (39.6-50.0); HGB 13.7 g/dL (13.0-17.0); Immature Grans, Automated 0.5 %; Lymphocytes # (A) 1.03 X 10*3/uL (0.90-5.00); Lymphocytes % (A) 23.7 %; MCH 34.2 pg (27.0-32.0); MCHC 35.9 g/dL (32.0-37.0); MCV 95.3 fL (80.0-97.0); Mean Platelet Volume 11.1 fL (9.5-12.2); Monocytes # (A) 0.33 X 10*3/uL (0.20-1.00); Monocytes % (A) 7.6 %; NRBC Per 100 WBC 0 /100 WBCS (0.0-0.0); Neutrophils # (A) 2.91 X 10*3/uL (1.80-7.70); Neutrophils % (A) 66.8 %; Platelet Count 206 X 10*3/uL (140-440); RBC 4.01 X 10*6/uL (4.40-5.60); RDW 12.3 % (11.5-14.5); WBC 4.35 X 10*3/uL (4.50-10.00)
[2022-01-04 23:39] LABS: Digoxin 0.7 ng/mL (0.8-2.0); Magnesium 2.2 mg/dL (1.5-2.4)
[2022-01-04 23:52] LABS: African American GFR (CKD) 115.4 (60.0-200.0); Albumin 4.7 g/dL (3.8-4.9); Albumin/Globulin Ratio 2.07 (1.60-3.17); Anion Gap 10.2 mmol/L (10.00-18.00); BUN/Creat Ratio 13.07 Ratio (12.00-20.00); Bilirubin, Conjugated 0.31 mg/dL (0.20-0.40); Bilirubin,Unconjugated 0.93 mg/dL (0.20-1.00); Blood Urea Nitrogen 12.8 mg/dL (9.0-27.0); Calcium 9.3 mg/dL (8.7-10.3); Carbon Dioxide 25.3 mmol/L (20.0-27.5); Globulin 2.3 g/dL (1.6-3.3); Non-African American GFR(CKD) 99.6 (60.0-200.0); Potassium 4.9 mmol/L (3.5-5.5); Total Bilirubin 1.2 mg/dL (0.30-1.20)
[2022-01-05 01:47] LABS: INR 2.42 (0.90-1.11); Prothrombin Time 26.2 sec (9.9-11.9)
== END | disposition home or self-care (01) ==
LOC: LABWHC1 15:17
PROVIDERS: ATTEND Surgery
DX: I42.5 Other restrictive cardiomyopathy (principal); I50.9 Heart failure, unspecified
CPT/HCPCS: 36415; 80048; 80076; 80162; 83615; 83735; 83880; 85025; 85610

== ENCOUNTER → 2022-03-06 | Outpatient (CLI) | payer BC, MEDICARE ==
[2022-03-06 14:20] LABS: HCT 44.1 % (39.6-50.0); MCH 33.6 pg (27.0-32.0); MCHC 36.3 g/dL (32.0-37.0); MCV 92.6 fL (80.0-97.0); Mean Platelet Volume 11.2 fL (9.5-12.2); NRBC Per 100 WBC 0 /100 WBCS (0.0-0.0); Platelet Count 222 X 10*3/uL (140-440); RBC 4.76 X 10*6/uL (4.40-5.60); RDW 13.1 % (11.5-14.5); WBC 5.44 X 10*3/uL (4.50-10.00)
[2022-03-06 14:50] LABS: INR 2.66 (0.90-1.11)
[2022-03-06 15:56] LABS: African American GFR (CKD) 100.3 (60.0-200.0); Anion Gap 12.1 mmol/L (10.00-18.00); Blood Urea Nitrogen 16.5 mg/dL (9.0-27.0); Calcium 9.4 mg/dL (8.7-10.3); Carbon Dioxide 25.9 mmol/L (20.0-27.5); Non-African American GFR(CKD) 86.5 (60.0-200.0)
== END | disposition home or self-care (01) ==
LOC: LABWHC1 11:03
PROVIDERS: ATTEND Internal Medicine
DX: Z01.810 Encounter for preprocedural cardiovascular examination (principal)
CPT/HCPCS: 36415; 80048; 80323; 85027; 85610

== ENCOUNTER → 2022-03-12 | Outpatient (CLI) | payer BC, MEDICARE ==
[2022-03-12 19:48] LABS: Digoxin 0.3 ng/mL (0.8-2.0); Magnesium 1.9 mg/dL (1.5-2.4)
[2022-03-12 20:05] LABS: African American GFR (CKD) 127.8 (60.0-200.0); Albumin 4.7 g/dL (3.8-4.9); Albumin/Globulin Ratio 2.04 (1.60-3.17); Anion Gap 7.9 mmol/L (10.00-18.00); BUN/Creat Ratio 16.56 Ratio (12.00-20.00); Bilirubin, Conjugated 0.33 mg/dL (0.20-0.40); Bilirubin,Unconjugated 1.17 mg/dL (0.20-1.00); Blood Urea Nitrogen 14.9 mg/dL (9.0-27.0); Calcium 8.8 mg/dL (8.7-10.3); Carbon Dioxide 26.1 mmol/L (20.0-27.5); Globulin 2.3 g/dL (1.6-3.3); Non-African American GFR(CKD) 110.3 (60.0-200.0); Potassium 4.3 mmol/L (3.5-5.5); Total Bilirubin 1.5 mg/dL (0.30-1.20)
[2022-03-12 20:12] LABS: INR 2.54 (0.90-1.11); Prothrombin Time 27.7 sec (9.9-11.9)
[2022-03-12 23:54] LABS: Basophils # (A) 0.02 X 10*3/uL (0.00-0.10); Basophils % (A) 0.4 %; Eosinophils # (A) 0.02 X 10*3/uL (0.04-0.35); Eosinophils % (A) 0.4 %; HGB 14.1 g/dL (13.0-17.0); Immature Grans, Automated 0.4 %; Lymphocytes # (A) 1.29 X 10*3/uL (0.90-5.00); Lymphocytes % (A) 26.1 %; MCHC 35.3 g/dL (32.0-37.0); MCV 93.7 fL (80.0-97.0); Mean Platelet Volume 10.9 fL (9.5-12.2); Monocytes # (A) 0.36 X 10*3/uL (0.20-1.00); Monocytes % (A) 7.3 %; NRBC Per 100 WBC 0 /100 WBCS (0.0-0.0); Neutrophils # (A) 3.23 X 10*3/uL (1.80-7.70); Neutrophils % (A) 65.4 %; Platelet Count 170 X 10*3/uL (140-440); RBC 4.27 X 10*6/uL (4.40-5.60); RDW 13.6 % (11.5-14.5); WBC 4.94 X 10*3/uL (4.50-10.00)
== END | disposition home or self-care (01) ==
LOC: LABWHC1 13:26
PROVIDERS: ATTEND Physician Assistant
DX: I42.5 Other restrictive cardiomyopathy (principal); I50.9 Heart failure, unspecified
CPT/HCPCS: 36415; 80048; 80076; 80162; 83615; 83735; 83880; 85025; 85610

== ENCOUNTER → 2022-04-05 | Outpatient (CLI) | payer MEDICARE, BC ==
[2022-04-05 18:16] LABS: INR 3.79 (0.90-1.11); Prothrombin Time 40.7 sec (9.9-11.9)
[2022-04-05 19:17] LABS: African American GFR (CKD) 112.5 (60.0-200.0); Albumin 4.8 g/dL (3.8-4.9); Albumin/Globulin Ratio 1.92 (1.60-3.17); Anion Gap 10.2 mmol/L (10.00-18.00); BUN/Creat Ratio 11.7 Ratio (12.00-20.00); Bilirubin, Conjugated 0.35 mg/dL (0.20-0.40); Bilirubin,Unconjugated 1.25 mg/dL (0.20-1.00); Blood Urea Nitrogen 11.7 mg/dL (9.0-27.0); Calcium 9.4 mg/dL (8.7-10.3); Carbon Dioxide 25.8 mmol/L (20.0-27.5); Globulin 2.5 g/dL (1.6-3.3); Non-African American GFR(CKD) 97.1 (60.0-200.0); Potassium 4.7 mmol/L (3.5-5.5); Total Bilirubin 1.6 mg/dL (0.30-1.20); Total Protein 7.3 g/dL (6.2-8.2)
== END | disposition home or self-care (01) ==
LOC: LABWHC1 12:57
PROVIDERS: ATTEND Physician Assistant
DX: I42.5 Other restrictive cardiomyopathy (principal); I50.9 Heart failure, unspecified
CPT/HCPCS: 36415; 80048; 80076; 83880; 85610

== ENCOUNTER → 2022-07-10 | Outpatient (CLI) | payer MEDICARE ==
[2022-07-10 13:02] LABS: INR 3.2 (<1.2); Prothrombin Time 31.3 sec (9.0-12.0)
[2022-07-10 13:07] LABS: ALT 30 U/L (4-49); AST 36 U/L (17-59); African American GFR (CKD) >90 (>60 ml/min/1.73 sqM); Albumin 4.8 g/dL (3.5-5.0); Albumin/Globulin Ratio 1.5; Alkaline Phosphatase 32 U/L (38-126); Anion Gap 7 mmol/L; Bilirubin,Unconjugated 1.4 mg/dL (0.0-1.1); Blood Urea Nitrogen 12 mg/dL (9-20); Carbon Dioxide 29 mmol/L (22-30); Chloride 104 mmol/L (98-107); Globulin 3.1 g/dL; Glucose 95 mg/dL (74-99); LDH 437 U/L (120-246); Magnesium 2.2 mg/dL (1.6-2.3); Non-African American GFR(CKD) >90 (>60 ml/min/1.73 sqM); Potassium 4.6 mmol/L (3.5-5.1); Sodium 140 mmol/L (137-145); Total Bilirubin 1.8 mg/dL (0.2-1.3); Total Protein 7.9 g/dL (6.3-8.2)
[2022-07-10 13:15] LABS: Basophils # (A) 0.1 k/uL (0-0.2); Basophils % (A) 1 %; Eosinophils % (A) 1 %; Hyperchromasia Slight; Lymphocytes # (A) 0.9 k/uL (1.0-4.8); Lymphocytes % (A) 17 %; MCH 34.3 pg (25.0-35.0); MCHC 36.4 g/dL (31.0-37.0); MCV 94.1 fL (80.0-100.0); Mean Platelet Volume 8.7; Monocytes # (A) 0.3 k/uL (0-1.0); Monocytes % (A) 6 %; Neutrophils # (A) 3.7 k/uL (1.3-7.7); Neutrophils % (A) 73 %; Platelet Count 186 k/uL (150-450); Poikilocytosis Slight; RBC 4.68 m/uL (4.30-5.90); RDW 14.4 % (11.5-15.5); WBC 5.1 k/uL (3.8-10.6)
[2022-07-10 13:35] LABS: Digoxin <0.4 ng/mL
== END | disposition home or self-care (01) ==
LOC: LABWHC1 12:00
PROVIDERS: ATTEND Physician Assistant
DX: I42.5 Other restrictive cardiomyopathy (principal); I50.1 Left ventricular failure, unspecified; I50.22 Chronic systolic (congestive) heart failure
CPT/HCPCS: 36415; 80048; 80076; 80162; 83615; 83735; 83880; 85025; 85610

== ENCOUNTER → 2022-08-29 | Outpatient (CLI) | payer MEDICARE ==
[2022-08-29 14:16] LABS: Basophils % (A) 0 %; Eosinophils % (A) 1 %; HCT 43.6 % (39.0-53.0); HGB 15.4 gm/dL (13.0-17.5); Lymphocytes # (A) 1.2 k/uL (1.0-4.8); Lymphocytes % (A) 26 %; MCH 33.4 pg (25.0-35.0); MCHC 35.3 g/dL (31.0-37.0); MCV 94.6 fL (80.0-100.0); Mean Platelet Volume 8.6; Monocytes # (A) 0.3 k/uL (0-1.0); Monocytes % (A) 8 %; Neutrophils # (A) 2.9 k/uL (1.3-7.7); Neutrophils % (A) 64 %; Platelet Count 185 k/uL (150-450); WBC 4.6 k/uL (3.8-10.6)
[2022-08-29 14:30] LABS: INR 3.3 (<1.2); Prothrombin Time 31.7 sec (9.0-12.0)
[2022-08-29 14:34] LABS: ALT 32 U/L (4-49); AST 38 U/L (17-59); African American GFR (CKD) >90 (>60 ml/min/1.73 sqM); Albumin 4.7 g/dL (3.5-5.0); Albumin/Globulin Ratio 1.5; Alkaline Phosphatase 29 U/L (38-126); Anion Gap 9 mmol/L; Bilirubin,Unconjugated 1.4 mg/dL (0.0-1.1); Blood Urea Nitrogen 17 mg/dL (9-20); Calcium 9.1 mg/dL (8.4-10.2); Carbon Dioxide 29 mmol/L (22-30); Chloride 102 mmol/L (98-107); Globulin 3.1 g/dL; Glucose 83 mg/dL (74-99); LDH 411 U/L (120-246); Non-African American GFR(CKD) >90 (>60 ml/min/1.73 sqM); Potassium 4.7 mmol/L (3.5-5.1); Sodium 140 mmol/L (137-145); Total Bilirubin 1.8 mg/dL (0.2-1.3); Total Protein 7.8 g/dL (6.3-8.2)
== END | disposition home or self-care (01) ==
LOC: LABWHC1 12:39
PROVIDERS: ATTEND Physician Assistant
DX: I42.5 Other restrictive cardiomyopathy (principal); I42.8 Other cardiomyopathies; I50.1 Left ventricular failure, unspecified; I50.22 Chronic systolic (congestive) heart failure; I51.9 Heart disease, unspecified
CPT/HCPCS: 36415; 80048; 80076; 83615; 83735; 83880; 85025; 85610

== ENCOUNTER → 2022-11-01 | Outpatient (CLI) | payer MEDICARE, OTHER ==
[2022-11-01 22:36] LABS: Urine Alcohol Negative (Negative); Urine Barbiturate Negative (Negative); Urine Cocaine Negative (Negative); Urine Methadone Negative (Negative); Urine Opiates Negative (Negative); Urine Phencyclidine Negative (Negative)
== END | disposition home or self-care (01) ==
LOC: LABWHC1 13:21
PROVIDERS: ATTEND Internal Medicine Cardiovascular Disease
DX: Z01.810 Encounter for preprocedural cardiovascular examination (principal)
CPT/HCPCS: 80306

== ENCOUNTER 2023-01-04 10:20 | Emergency (ER) | payer OTHER, MEDICARE ==
[2023-01-04] MEDS ORDERED: MORPHINE SULFATE 4 MG/ML SYRINGE IVP STA (11:07)
[2023-01-04 11:27] LABS: Basophils % (A) 0 %; Eosinophils % (A) 0 %; HCT 36.2 % (39.0-53.0); HGB 12.6 gm/dL (13.0-17.5); Lymphocytes # (A) 0.8 k/uL (1.0-4.8); Lymphocytes % (A) 7 %; MCH 32.8 pg (25.0-35.0); MCHC 34.7 g/dL (31.0-37.0); MCV 94.6 fL (80.0-100.0); Mean Platelet Volume 8.2; Monocytes # (A) 0.5 k/uL (0-1.0); Monocytes % (A) 5 %; Neutrophils # (A) 9.6 k/uL (1.3-7.7); Neutrophils % (A) 87 %; Platelet Count 286 k/uL (150-450); Poikilocytosis Slight; RBC 3.83 m/uL (4.30-5.90); RDW 13.5 % (11.5-15.5); WBC 11.1 k/uL (3.8-10.6)
[2023-01-04 11:35] LABS: ALT 37 U/L (4-49); AST 36 U/L (17-59); African American GFR (CKD) >90 (>60 ml/min/1.73 sqM); Albumin 4.2 g/dL (3.5-5.0); Alkaline Phosphatase 87 U/L (38-126); Amylase 45 U/L (30-110); Anion Gap 10 mmol/L; Blood Urea Nitrogen 13 mg/dL (9-20); Calcium 9.1 mg/dL (8.4-10.2); Carbon Dioxide 26 mmol/L (22-30); Chloride 99 mmol/L (98-107); Glucose 101 mg/dL (74-99); Lipase 53 U/L (23-300); Non-African American GFR(CKD) >90 (>60 ml/min/1.73 sqM); Potassium 4.6 mmol/L (3.5-5.1); Sodium 135 mmol/L (137-145); Total Bilirubin 2.5 mg/dL (0.2-1.3); Total Protein 7.7 g/dL (6.3-8.2)
[2023-01-04 11:36] LABS: INR 3.5 (<1.2); Partial Thromboplastin Time 48.5 sec (22.0-30.0); Prothrombin Time 34.3 sec (9.0-12.0)
--- NOTE | 2023-01-04 12:20 | US ---
EXAMINATION TYPE: US gallbladder DATE OF EXAM: 01/04/2023 COMPARISON: NONE CLINICAL INDICATION: Male, 37 years old with history of RUQ pain; chest pain, patient has LVAD TECHNIQUE: Multiple sonographic images of the right upper quadrant are obtained. FINDINGS: EXAM MEASUREMENTS: Liver Length: 15.5 cm Gallbladder Wall: 0.3 cm CBD: 0.6 cm Right Kidney: 11.9 x 5.2 x 5.1 cm GROUP LEADER NOTES:bowel gas limits study Pancreas: portions seen appear wnl Liver: wnl Gallbladder: wall borderline, otherwise wnl Evidence for sonographic Chaudhry's sign: no CBD: wnl Right Kidney: wnl Visualized pancreas is unremarkable. Visualized liver shows no worrisome mass or ductal dilatation. G allbladder is within normal limits. Common bile duct measures upper limits of normal. Limited images of right kidney show no gross hydronephrosis. IMPRESSION: Suboptimal study but no shadowing mobile gallstones or ultrasound evidence for acute chol ecystitis.
--- NOTE | 2023-01-04 12:37 | ED ---
Abdominal Pain HPI - General Chief Complaint: Abdominal Pain Stated Complaint: abd pain Time Seen by Provider: 01/04/23 11:00 Source: patient, RN notes reviewed Mode of arrival: ambulatory Limitations: no limitations - History of Present Illness Initial Comments: This is a 37-year-old male who presents to the emergency department for abdominal pain. States that the symptoms started yesterday. Pain is worse with movement and described as sharp. Denies any nausea, vomiting, or shortness of breath. Patient does have an LVAD that has been in place for 11 years secondary to cardiomyopathy. He is currently awaiting a heart transplant. Patient is not ed to have a fairly fast heart rate, and states that this is typical for him. He is currently taking Coumadin. Denies any fevers, chills, sore throat, cough, dyspnea, palpitations, nausea, vomiting, diarrhea, back pain, or headaches. MD Complaint: abdominal pain Onset/Timin -: days(s) Location: RUQ - Related Data Previous Rx's Medication Instructions Recorded HYDROcodone/APAP 5-325MG [[place] 1 tab PO Q6HR PRN 3 Days #12 tab 01/04/23 5-325] Lidocaine 5% Patch [Lidoderm 5% 1 patch TOPICAL DAILY PRN #30 patch 01/04/23 Patch] Allergies Allergy/AdvReac Type Severity Reaction Status Date / Time No Known Allergies Allergy Verified 11/30/21 11:42 Review of Systems ROS Statement: Those systems with pertinent positive or pertinent negative responses have been documented in the HPI. ROS Other: All systems not noted in ROS Statement are negative. Past Medical History Past Medical History: Hypertension Additional Past Medical History / Comment(s): Lt ventricle assistive device. History of Any Multi-Drug Resistant Organisms: None Reported Past Surgical History: AICD, Pacemaker Past Psychological History: No Psychological Hx Reported Smoking Status: Never smoker Past Alcohol Use History: None Reported Past Drug Use History: None Reported General Exam Limitations: no limitations General appearance: alert, in no apparent distress Head exam: Present: atraumatic, normocephalic, normal inspection Respiratory exam: Present: normal lung sounds bilaterally. Absent: respiratory distress, wheezes, rales, rhonchi, stridor Cardiovascular Exam: Present: normal rhythm, tachycardia GI/Abdominal exam: Present: soft, tenderness (RUQ), normal bowel sounds. Absent: distended Neurological exam: Present: alert, oriented X3, CN II-XII intact Psychiatric exam: Present: normal affect, normal mood Skin exam: Present: warm, dry, intact, normal color. 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 ] Respiratory 18 30 H Rate Blood Pressure 102/77 107/85 O2 Sat by Pulse 99 96 Oximetry 01/04/23 01/04/23 01/04/23 12:28 14:00 14:54 Temperature Pulse Rate 121 H 133 H 125 H Pulse Rate [ [employer] Sales Agent ] Respiratory 28 H 30 H 28 H Rate Blood Pressure 99/80 101/71 97/60 O2 Sat by Pulse 94 L 95 96 Oximetry 01/04/23 16:25 Temperature 103 F H Pulse Rate 134 H Pulse Rate [ [employer] Services Sales Agent ] Respiratory 28 H Rate Blood Pressure 101/86 O2 Sat by Pulse 95 Oximetry Medical Decision Making - Medical Decision Making This is a 37-year-old male who presents to the emergency department for abdominal pain. Was pt. sent in by a medical professional or institution? @ -No Did you speak to anyone other than the patient for history? @ -No Did you review nursing and triage notes? @ -Yes, and I agree, it is accurate with regards to the patient's symptoms. Were old charts reviewed? @ -No Differential Diagnosis? @ -Differential Abdominal Pain Men: Appendicitis, cholecystitis, diverticulosis, ischemic bowel, pancreatitis, hepatitis, UTI, gastroenteritis, AAA, incarcerated hernia, bowel obstruction, constipation, inflammatory bowel, hepatitis, peptic ulcer disease, splenic infarction, perforated viscus, testicular torsion, this is not meant to be an all-inclusive list EKG interpreted by me (3pts min.)? @ -EKG interpreted by me demonstrating the following: Sinus tachycardia with occasional PVCs. Ventricular rate 130 beats per minute, TX interval 175 ms, QRS duration 126 ms, QTC 416 ms. X-rays interpreted by me (1pt min.)? @ -Chest x-ray obtained, my interpretation identifies no localized consolidations or infiltrates. CT interpreted by me (1pt min.)? @ -Computed tomography scan of the chest and abdomen obtained. My interpretation identifies no evidence of any localized consolidations or infiltrates. I also identified no evidence of free air. U/S interpreted by me (1pt. min.)? @ -Gallbladder ultrasound obtained. My interpretation identifies no evidence of gallbladder wall thickening or cholelithiasis. What testing was considered but not performed? (CT, X-rays, U/S, labs)? Why? @ -None What meds were considered but not given? Why? @ -None Did you discuss the management of the patient with other professionals? @ -Yes, Jose Manuel with the LV[facility] clinic at [facility], who did not have any other recommendations and will follow up with the patient on Friday. Did you reconcile home meds? @ -No Was smoking cessation discussed for >3mins.? @ -No Was critical care preformed (if so, how long)? @ -No Were there social determinants of health that impacted care today? How? (Homelessness, low income, unemployed, alcoholism, drug addiction, transporta tion, low edu. Level, literacy, decrease access to med. care, long-term, rehab)? @ -No Was there de-escalation of care discussed even if they declined? (Discuss DNR or withdrawal of care, Hospice)? @ -No What co-morbidities impacted this encounter? (DM, HTN, Smoking, COPD, CAD, Cancer, CVA, Hep., AIDS, mental health diagnosis, sleep apnea, morbid obesity)? @ -Cardiomyopathy, HTN Was patient admitted / discharged? @ -Discharged. Lab work obtained revealing mild leukocytosis with a white blood cell count of 11.1. Lab work was otherwise nonactionable. Covid, influenza, and RSV testing were negative. We initially obtained a gallbladder ultrasound, which was negative for signs of infection or other acute process. Chest x-ray obtained as well, also revealing no acute findings. Given the patient's notable medical history and lack of explanation for his symptoms, we did proceed with a computed tomography scan of the chest and abdomen. This also revealed no acute process. Advised the patient that the cause of his symptoms are not entirely clear. It may be related to a chest wall problem. I did speak with Jose Manuel from the LVAD clinic at the [facility]. He did not have any other thoughts regarding the patient's presentation, but did advise that if he needed to be transferred to the [facility] for evaluation or observation, that could potentially be done as an ED to ED transfer. This was discussed with the patient, who was comfortable with discharge home at this time and he was given strict return parameters. The LVAD clinic will follow-up with the patient on Friday to reevaluate him. Given the extent of his pain and because he is unable to take NSAIDs, he was given a prescription for a 3 day course of [place] and lidocaine patches with dosing instructions reviewed. He is reminded to take the [place] sparingly when his pain is the most severe and to otherwise take Tylenol. He was given very strict return parameters. Undiagnosed new problem with uncertain prognosis? @ -None Drug Therapy requiring intensive monitoring for toxicity (Heparin, Nitro, Insulin, Cardizem)? @ -None Were any procedures done? @ -None Diagnosis/symptom? @ -RUQ pain, right sided chest pain Acute, or Chronic, or Acute on Chronic? @ -Acute Uncomplicated (without systemic symptoms) or Complicated (systemic symptoms)? @ -Uncomplicated Side effects of treatment? @ -None Exacerbation, Progression, or Severe Exacerbation] @ -Not applicable Poses a threat to life or bodily function? @ -Unclear at this time, this will depend on the cause of his symptoms. Return precautions reviewed in depth, the patient is instructed to return to the emergency department with any new, worsening, or concerning symptoms. Patient verbalized understanding. This case was discussed in detail with the attending ED physician, Dr. Virk. Presentation, findings, and treatment plan discussed in detail as well. - Lab Data Result diagrams: 01/04/23 11:14 01/04/23 11:14 Lab Results 01/04/23 01/04/23 01/04/23 Range/Units 11:14 11:14 11:14 WBC 11.1 H (3.8-10.6) k/uL RBC 3.83 L (4.30-5.90) m/uL Hgb 12.6 L (13.0-17.5) gm/dL Hct 36.2 L (39.0-53.0) % MCV 94.6 (80.0-100.0) fL MCH 32.8 (25.0-35.0) pg MCHC 34.7 (31.0-37.0) g/dL RDW 13.5 (11.5-15.5) % Plt Count 286 (150-450) k/uL MPV 8.2 Neutrophils % 87 % Lymphocytes % 7 % Monocytes % 5 % Eosinophils % 0 % Basophils % 0 % Neutrophils # 9.6 H (1.3-7.7) k/uL Lymphocytes # 0.8 L (1.0-4.8) k/uL Monocytes # 0.5 (0-1.0) k/uL Eosinophils # 0.0 (0-0.7) k/uL Basophils # 0.0 (0-0.2) k/uL Poikilocytosis Slight PT 34.3 H (9.0-12.0) sec INR 3.5 H (<1.2) APTT 48.5 H (22.0-30.0) sec Sodium 135 L (137-145) mmol/L Potassium 4.6 (3.5-5.1) mmol/L Chloride 99 (98-107) mmol/L Carbon Dioxide 26 (22-30) mmol/L Anion Gap 10 mmol/L BUN 13 (9-20) mg/dL Creatinine 0.95 (0.66-1.25) mg/dL Est GFR (CKD-EPI)AfAm >90 (>60 ml/min/1.73 sqM) Est GFR (CKD-EPI)NonAf >90 (>60 ml/min/1.73 sqM) Glucose 101 H (74-99) mg/dL Plasma Lactic Acid Andrea (0.7-2.0) mmol/L Calcium 9.1 (8.4-10.2) mg/dL Total Bilirubin 2.5 H (0.2-1.3) mg/dL AST 36 (17-59) U/L ALT 37 (4-49) U/L Alkaline Phosphatase 87 (38-126) U/L Total Protein 7.7 (6.3-8.2) g/dL Albumin 4.2 (3.5-5.0) g/dL Amylase 45 (30-110) U/L Lipase 53 (23-300) U/L Influenza Type A (PCR) (Not Detectd) Influenza Type B (PCR) (Not Detectd) RSV (PCR) (Not Detectd) SARS-CoV-2 (PCR) (Not Detectd) 01/04/23 01/04/23 Range/Units 11:14 16:15 WBC (3.8-10.6) k/uL RBC (4.30-5.90) m/uL Hgb (13.0-17.5) gm/dL Hct (39.0-53.0) % MCV (80.0-100.0) fL MCH (25.0-35.0) pg MCHC (31.0-37.0) g/dL RDW (11.5-15.5) % Plt Count (150-450) k/uL MPV Neutrophils % % Lymphocytes % % Monocytes % % Eosinophils % % Basophils % % Neutrophils # (1.3-7.7) k/uL Lymphocytes # (1.0-4.8) k/uL Monocytes # (0-1.0) k/uL Eosinophils # (0-0.7) k/uL Basophils # (0-0.2) k/uL Poikilocytosis PT (9.0-12.0) sec INR (<1.2) APTT (22.0-30.0) sec Sodium (137-145) mmol/L Potassium (3.5-5.1) mmol/L Chloride (98-107) mmol/L Carbon Dioxide (22-30) mmol/L Anion Gap mmol/L BUN (9-20) mg/dL Creatinine (0.66-1.25) mg/dL Est GFR (CKD-EPI)AfAm (>60 ml/min/1.73 sqM) Est GFR (CKD-EPI)NonAf (>60 ml/min/1.73 sqM) Glucose (74-99) mg/dL Plasma Lactic Acid Andrea 1.1 (0.7-2.0) mmol/L Calcium (8.4-10.2) mg/dL Total Bilirubin (0.2-1.3) mg/dL AST (17-59) U/L ALT (4-49) U/L Alkaline Phosphatase (38-126) U/L Total Protein (6.3-8.2) g/dL Albumin (3.5-5.0) g/dL Amylase (30-110) U/L Lipase (23-300) U/L Influenza Type A (PCR) Not Detected (Not Detectd) Influenza Type B (PCR) Not Detected (Not Detectd) RSV (PCR) Not Detected (Not Detectd) SARS-CoV-2 (PCR) Not Detected (Not Detectd) - Radiology Data Radiology results: report reviewed, image reviewed Disposition Clinical Impression: Right upper quadrant abdominal pain, Right-sided chest pain Disposition: HOME SELF-CARE Instructions (If sedation given, give patient instructions): Abdominal Pain (ED) Additional Instructions: Return to the emergency department with any new, worsening, or concerning symptoms. Take Tylenol as needed for pain relief and take the [place] sparingly when your pain is the most severe. You can apply the lidocaine patches daily. The LVAD clinic will call you on Friday. Follow up with your primary care provider in 1-2 days. Prescriptions: Lidocaine 5% Patch [Lidoderm 5% Patch] 1 patch TOPICAL DAILY PRN #30 patch PRN Reason: Pain HYDROcodone/APAP 5-325MG [[place] 5-325] 1 tab PO Q6HR PRN 3 Days #12 tab PRN Reason: Pain Is patient prescribed a controlled substance at d/c from ED?: Yes When asked, does pt state using other controlled substances?: No If prescribed controlled substance>3 days was MAPS reviewed?: Prescribed <3 Days Referrals: Nonstaff,Physician [Primary Care Provider] - 1-2 days
--- NOTE | 2023-01-04 13:24 | XR ---
EXAMINATION TYPE: XR chest 2V DATE OF EXAM: 01/04/2023 COMPARISON: Chest x-ray November 30, 2021 HISTORY: Chest pain. TECHNIQUE: Frontal and lateral views of the chest are obtained. FINDINGS: Persistent cardiomegaly with multiphasic pacemaker/defibrillator and inferior cardiac assi st device redemonstrated. Overlying sternal wires redemonstrated. No new focal airspace opacity, pleu ral effusion, or pneumothorax seen bilaterally. IMPRESSION: Cardiomegaly without acute pulmonary process. No significant change from prior chest x-r ay
[2023-01-04] MEDS ORDERED: HYDROmorphone 0.5 MG/0.5 ML SYRINGE IVP STA (13:55)
[2023-01-04] MEDS ORDERED: LIDOCAINE 5% PATCH TOPICAL ONE (14:30)
[2023-01-04 14:56] VITALS: RESP 28
--- NOTE | 2023-01-04 15:32 | CT ---
EXAMINATION TYPE: CT chest abdomen w con DATE OF EXAM: 01/04/2023 COMPARISON: CTA chest May 22, 2011. Chest x-ray earlier today. HISTORY: RUQ and RT chest wall pain. Has LVAD, pacemaker. CT DLP: 1419 mGycm. Automated Exposure Control for Dose Reduction was Utilized. CONTRAST: CT scan of the thorax and abdomen are performed with IV Contrast, patient injected with 100 mL of Iso edis 300. FINDINGS: LUNGS: Some respiratory motion artifact makes evaluation slightly suboptimal. Dependent atelectasis i n the bilateral lower lobes. No pleural effusion or pneumothorax seen bilaterally. MEDIASTINUM: Overlying sternal wires and mediastinal clips are present. There is cardiomegaly with mu ltilead pacemaker/defibrillator. There is metallic bypass device running from the left ventricular ap ex to the ascending aorta. Some mixed plaque causes narrowing near the aortic insertion but patency i s present. There is bovine type aortic arch which is normal variant. Enlarged main pulmonary artery 3 .2 cm segment 23 consistent with underlying pulmonary artery hypertension. LIVER/GB: No significant abnormality is appreciated. PANCREAS: No significant abnormality is seen. SPLEEN: No significant abnormality is seen. ADRENALS: No significant abnormality is seen. KIDNEYS: No significant abnormality is seen. BOWEL: No significant abnormality is seen. LYMPH NODES: No greater than 1cm abdominal lymph nodes are appreciated. OSSEOUS STRUCTURES: No significant abnormality is seen. OTHER: No significant additional abnormality is seen. IMPRESSION: No acute findings are present to account for patient's symptoms.
[2023-01-04] MEDS ORDERED: ACETAMINOPHEN TAB 500 MG TAB PO STA (16:09)
[2023-01-04 16:15] VITALS: BP 101/86; PULSE 134; TEMP 103
== END 2023-01-04 16:25 | disposition home or self-care (01) ==
LOC: EC 10:20
DX: R10.11 Right upper quadrant pain (principal); R07.89 Other chest pain; I10 Essential (primary) hypertension; Z20.822 Contact with and (suspected) exposure to COVID-19
CPT/HCPCS: 36415; 80053; 82150; 83605; 83690; 85025; 85610; 85730; 87636; 71046; 76705; 71260; 74160; 99285; 96374; 96375; J2270; J1170; Q9967